=== PATIENT | female | born 1970 | race Caucasian/White ===

== ENCOUNTER 2019-04-26 13:02 | Emergency (ER) | payer OTHER ==
[2019-04-26] MEDS ORDERED: SODIUM CHLORIDE 0.9% 1,000 ML IV STA ×2 (14:04)
[2019-04-26] MEDS ORDERED: HYDROmorphone 1 MG/ML 1 ML SYRINGE IVP STA ×2 (14:05→16:27)
[2019-04-26 14:45] LABS: Appearance,Urine Clear (Clear); Bilirubin,Urine Negative (Negative); Blood,Urine Negative (Negative); Color,Urine Yellow; Glucose,Urine (UA) Negative (Negative); Ketones,Urine Negative (Negative); Leukocyte Esterase,Urine Negative (Negative); Nitrite,Urine Negative (Negative); PH, Urine 5.5 (5.0-8.0); Protein,Urine Trace (Negative); Specific Gravity,Urine 1.028 (1.001-1.035)
--- NOTE | 2019-04-26 14:50 | XR ---
EXAM TYPE: LUMBAR SPINE X RAY SERIES COMPARISON: NONE HISTORY: Pain TECHNIQUE: 3 views are submitted. FINDINGS: Alignment is anatomic. The pedicles are intact. The transverse processes are intact. There is no s pondylolysis or spondylolisthesis. Mild hypertrophic changes along the upper margin of the vertebral column with facet arthropathy L4-5 and L5-S1. Degenerative disc disease at these levels. IMPRESSION: 1. Facet arthropathy and degenerative disc disease lower lumbar spine..
[2019-04-26 14:54] LABS: INR 0.9 (<1.2); Partial Thromboplastin Time 23.9 sec (22.0-30.0); Prothrombin Time 9.8 sec (9.0-12.0)
--- NOTE | 2019-04-26 14:54 | XR ---
EXAMINATION TYPE: XR chest 2V DATE OF EXAM: 04/26/2019 COMPARISON: NONE HISTORY: Chest pain TECHNIQUE: Frontal and lateral views of the chest are obtained. FINDINGS: There is no focal air space opacity, pleural effusion, or pneumothorax seen. The cardiac silhouette size is within normal limits. The osseous structures are intact. Patient is rotated. IMPRESSION: No acute cardiopulmonary process.
[2019-04-26 14:55] LABS: ALT 17 U/L (4-34); AST 22 U/L (14-36); African American GFR (CKD) >90 (>60 ml/min/1.73 sqM); Albumin 4.7 g/dL (3.5-5.0); Alkaline Phosphatase 88 U/L (38-126); Anion Gap 6 mmol/L; Blood Urea Nitrogen 22 mg/dL (7-17); Calcium 9.3 mg/dL (8.4-10.2); Carbon Dioxide 32 mmol/L (22-30); Chloride 100 mmol/L (98-107); Glucose 105 mg/dL (74-99); Magnesium 1.8 mg/dL (1.6-2.3); Non-African American GFR(CKD) >90 (>60 ml/min/1.73 sqM); Potassium 3.8 mmol/L (3.5-5.1); Sodium 138 mmol/L (137-145); Total Bilirubin 0.5 mg/dL (0.2-1.3); Total Protein 7.3 g/dL (6.3-8.2)
[2019-04-26 14:58] LABS: Basophils % (A) 1 %; Eosinophils # (A) 0.1 k/uL (0-0.7); Eosinophils % (A) 2 %; HCT 42.9 % (34.0-46.0); HGB 14.6 gm/dL (11.4-16.0); Lymphocytes # (A) 1.7 k/uL (1.0-4.8); Lymphocytes % (A) 29 %; MCH 30.7 pg (25.0-35.0); MCHC 34.1 g/dL (31.0-37.0); MCV 89.9 fL (80.0-100.0); Mean Platelet Volume 8.4; Monocytes # (A) 0.4 k/uL (0-1.0); Monocytes % (A) 6 %; Neutrophils # (A) 3.5 k/uL (1.3-7.7); Neutrophils % (A) 60 %; Platelet Count 201 k/uL (150-450); RBC 4.77 m/uL (3.80-5.40); WBC 5.8 k/uL (3.8-10.6)
--- NOTE | 2019-04-26 15:07 | ED ---
Back Pain HPI - General Chief Complaint: Back Pain/Injury Stated Complaint: back pain, leg numbness Time Seen by Provider: 04/26/19 13:42 Source: patient, RN notes reviewed, old records reviewed Limitations: no limitations - History of Present Illness Initial Comments: 49-year-old female presents emergency department today for evaluation for lower back pain, numbness and tingling on lower legs. She reports she had a fall few weeks ago. She also states she isn't having some chest pain due to the worsening pain in her lower back. Patient states that she has no previous car diac history. Patient reports that she does have history of chronic back pain and is maintained on oral morphine. She reports that this is not managing her pain for the past this time. She sees a painter helper spray in [place]. She denies saddle anesthesias. She denies any specific abdominal pain. - Related Data Previous Rx's Medication Instructions Recorded Dexamethasone 0.75 mg PO DAILY #12 tab 04/26/19 Allergies Allergy/AdvReac Type Severity Reaction Status Date / Time No Known Allergies Allergy Verified 04/26/19 13:13 Review of Systems ROS Statement: Those systems with pertinent positive or pertinent negative responses have been documented in the HPI. ROS Other: All systems not noted in ROS Statement are negative. Past Medical History Past Medical History: Asthma, Hypertension Additional Past Medical History / Comment(s): chronic back pain, kidney stones History of Any Multi-Drug Resistant Organisms: None Reported Past Surgical History: Hysterectomy, Orthopedic Surgery, Tubal Ligation Additional Past Surgical History / Comment(s): lithotripsy Past Psychological History: No Psychological Hx Reported Smoking Status: Current some day smoker Past Alcohol Use History: None Reported Past Drug Use History: Marijuana General Exam - General Exam Comments Initial Comments: 49-year-old. Alert and oriented 3. Patient appears in no significant distress. Limitations: no limitations General appearance: alert, in no apparent distress Head exam: Present: atraumatic, normocephalic, normal inspection Eye exam: Present: normal appearance, PERRL, EOMI. Absent: scleral icterus, conjunctival injection, periorbital swelling ENT exam: Present: normal exam, mucous membranes moist Neck exam: Present: normal inspection. Absent: tenderness, meningismus, lymphadenopathy Respiratory exam: Present: normal lung sounds bilaterally. Absent: respiratory distress, wheezes, rales, rhonchi, stridor Cardiovascular Exam: Present: regular rate, normal rhythm, normal heart sounds. Absent: systolic murmur, diastolic murmur, rubs, gallop, clicks GI/Abdominal exam: Present: soft, normal bowel sounds. Absent: distended, tenderness, guarding, rebound, rigid Extremities exam: Present: normal inspection, full ROM, normal capillary refill. Absent: tenderness, pedal edema, joint swelling, calf tenderness Back exam: Present: normal inspection, tenderness (lumbar spine tenderness, right paraspinal tenderness. Normal pulses distally. Patient seen ambulating. ) Neurological exam: Present: alert, oriented X3, CN II-XII intact Psychiatric exam: Present: normal affect, normal mood Skin exam: Present: warm, dry, intact, normal color. Absent: rash Course Vital Signs 04/26/19 04/26/19 04/26/19 13:10 16:17 18:08 Temperature 97.9 F 98.4 F Pulse Rate 94 79 78 Respiratory 18 16 Rate Blood Pressure 180/85 151/97 157/98 O2 Sat by Pulse 99 98 Oximetry - Reevaluation(s) Reevaluation #1: 04/26/19 20:47 Is exhibiting drug-seeking behavior. Medical Decision Making - Medical Decision Making 49-year-old feel presenting today for evaluation for lower back pain. She also stated multiple symptoms including back pain causing chest pain. She's been having worsening back in the past few weeks. No acute fall. She has full range of motion of extremities. Normal pulses distally. She denied saddle anesthesia. Patient is maintained on oral morphine for chronic back pain. She sees a painter helper spray in addition right. Patient has not been to the ER. Extensive evaluation has been completed. Urinalysis shows no infection. Blood work was unremarkable. EKG and troponin are negative. Chest x-ray and lumbar spine x-ray were reviewed and negative for any acute process. Due to patient's persistent pain CT of the lumbar spine was ordered. This shows some minor degenerative changes without any acute process. I discussed the findings with the Patient. I discussed she is follow-up with her painter helper spray. Due to some radiculopathy symptoms Patient can be started on steroids at this time. Given IV Solu-Medrol. Patient is requesting further narcotic prescriptions discusses cannot be given to her she certainly maintained on oral morphine. Patient discharged in stable condition. - Lab Data Result diagrams: 04/26/19 14:15 04/26/19 14:15 Lab Results 04/26/19 04/26/19 04/26/19 Range/Units 14:15 14:15 14:15 WBC 5.8 (3.8-10.6) k/uL RBC 4.77 (3.80-5.40) m/uL Hgb 14.6 (11.4-16.0) gm/dL Hct 42.9 (34.0-46.0) % MCV 89.9 (80.0-100.0) fL MCH 30.7 (25.0-35.0) pg MCHC 34.1 (31.0-37.0) g/dL RDW 12.0 (11.5-15.5) % Plt Count 201 (150-450) k/uL Neutrophils % 60 % Lymphocytes % 29 % Monocytes % 6 % Eosinophils % 2 % Basophils % 1 % Neutrophils # 3.5 (1.3-7.7) k/uL Lymphocytes # 1.7 (1.0-4.8) k/uL Monocytes # 0.4 (0-1.0) k/uL Eosinophils # 0.1 (0-0.7) k/uL Basophils # 0.0 (0-0.2) k/uL PT (9.0-12.0) sec INR (<1.2) APTT (22.0-30.0) sec Sodium 138 (137-145) mmol/L Potassium 3.8 (3.5-5.1) mmol/L Chloride 100 (98-107) mmol/L Carbon Dioxide 32 H (22-30) mmol/L Anion Gap 6 mmol/L BUN 22 H (7-17) mg/dL Creatinine 0.70 (0.52-1.04) mg/dL Est GFR (CKD-EPI)AfAm >90 (>60 ml/min/1.73 sqM) Est GFR (CKD-EPI)NonAf >90 (>60 ml/min/1.73 sqM) Glucose 105 H (74-99) mg/dL Calcium 9.3 (8.4-10.2) mg/dL Magnesium 1.8 (1.6-2.3) mg/dL Total Bilirubin 0.5 (0.2-1.3) mg/dL AST 22 (14-36) U/L ALT 17 (4-34) U/L Alkaline Phosphatase 88 (38-126) U/L Troponin I (0.000-0.034) ng/mL NT-Pro-B Natriuret Pep 229 pg/mL Total Protein 7.3 (6.3-8.2) g/dL Albumin 4.7 (3.5-5.0) g/dL Lipase 62 (23-300) U/L Urine Color Urine Appearance (Clear) Urine pH (5.0-8.0) Ur Specific [place] (1.001-1.035) Urine Protein (Negative) Urine Glucose (UA) (Negative) Urine Ketones (Negative) Urine Blood (Negative) Urine Nitrite (Negative) Urine Bilirubin (Negative) Urine Urobilinogen (<2.0) mg/dL Ur Leukocyte Esterase (Negative) 04/26/19 04/26/19 04/26/19 Range/Units 14:15 14:15 14:15 WBC (3.8-10.6) k/uL RBC (3.80-5.40) m/uL Hgb (11.4-16.0) gm/dL Hct (34.0-46.0) % MCV (80.0-100.0) fL MCH (25.0-35.0) pg MCHC (31.0-37.0) g/dL RDW (11.5-15.5) % Plt Count (150-450) k/uL Neutrophils % % Lymphocytes % % Monocytes % % Eosinophils % % Basophils % % Neutrophils # (1.3-7.7) k/uL Lymphocytes # (1.0-4.8) k/uL Monocytes # (0-1.0) k/uL Eosinophils # (0-0.7) k/uL Basophils # (0-0.2) k/uL PT 9.8 (9.0-12.0) sec INR 0.9 (<1.2) APTT 23.9 (22.0-30.0) sec Sodium (137-145) mmol/L Potassium (3.5-5.1) mmol/L Chloride (98-107) mmol/L Carbon Dioxide (22-30) mmol/L Anion Gap mmol/L BUN (7-17) mg/dL Creatinine (0.52-1.04) mg/dL Est GFR (CKD-EPI)AfAm (>60 ml/min/1.73 sqM) Est GFR (CKD-EPI)NonAf (>60 ml/min/1.73 sqM) Glucose (74-99) mg/dL Calcium (8.4-10.2) mg/dL Magnesium (1.6-2.3) mg/dL Total Bilirubin (0.2-1.3) mg/dL AST (14-36) U/L ALT (4-34) U/L Alkaline Phosphatase (38-126) U/L Troponin I <0.012 (0.000-0.034) ng/mL NT-Pro-B Natriuret Pep pg/mL Total Protein (6.3-8.2) g/dL Albumin (3.5-5.0) g/dL Lipase (23-300) U/L Urine Color Yellow Urine Appearance Clear (Clear) Urine pH 5.5 (5.0-8.0) Ur Specific [place] 1.028 (1.001-1.035) Urine Protein Trace H (Negative) Urine Glucose (UA) Negative (Negative) Urine Ketones Negative (Negative) Urine Blood Negative (Negative) Urine Nitrite Negative (Negative) Urine Bilirubin Negative (Negative) Urine Urobilinogen 2.0 (<2.0) mg/dL Ur Leukocyte Esterase Negative (Negative) 04/26/19 20:17 ED performed at 1425 shows normal sinus rhythm normal ECG. Ventricular rate of 85 bpm. Pulse 124 ms. QRS duration is 90 ms. QT QTc is 410/457 ms. - Radiology Data Radiology results: report reviewed Negative CT lumbar spine. No spinal stenosis. No evidence of any lumbar disc herniation. Noted 5 mm calculus left kidney. Chest x-rays negative for any acute cardiopulmonary process. Facet arthropathy and degenerative disc disease lower lumbar spine. Disposition Clinical Impression: Back pain Disposition: HOME SELF-CARE Condition: Good Instructions (If sedation given, give patient instructions): Acute Low Back Pain (ED) Additional Instructions: Continue at home pain medication. Using the steroids as well. Follow-up with your PCP. Return and follow-up with pain management. Prescriptions: Dexamethasone 0.75 mg PO DAILY #12 tab Is patient prescribed a controlled substance at d/c from ED?: No If prescribed controlled substance>3 days was MAPS reviewed?: Prescribed <3 Days Referrals: Antonina Burnham MD [Primary Care Provider] - 1-2 days Time of Disposition: 17:29
[2019-04-26] MEDS ORDERED: ORPHENADRINE 30 MG/ML 2 ML VIAL IVP STA ×2 (16:27→18:01)
--- NOTE | 2019-04-26 17:01 | CT ---
EXAMINATION TYPE: CT lumbar spine wo con DATE OF EXAM: 04/26/2019 COMPARISON: None HISTORY: Low back pain. CT DLP: 940.7 mGycm Automated exposure control for dose reduction was used. Multiple axial sections were obtained from the level of T12-S3 vertebra without contrast. Lumbar vertebra have normal alignment. Disc spaces are fairly normal. There is no lumbar paraspinal m ass. Posterior elements are intact. There is no evidence of spinal stenosis. There is mild posterior disc bulging from L3 to S1. There is no significant impingement on the spinal canal. Facet joints are intact. There is no spondylolysis. I see no focal bone destruction. Sacroiliac joints appear normal. IMPRESSION: Negative CT scan of the lumbar spine. No spinal stenosis. No evidence of any significant lumbar disc herniation. There is noted 5 mm calculus posterior left kidney.
[2019-04-26] MEDS ORDERED: methylPREDNISolone SOD SUCCI 125 MG/2 ML VIAL IV STA (17:28)
[2019-04-26 18:10] VITALS: BP 157/98; PULSE 78; RESP 16; TEMP 98.4
== END 2019-04-26 18:08 | disposition home or self-care (01) ==
LOC: EC 13:02
DX: M54.5 Low back pain (principal); R20.0 Anesthesia of skin; R20.2 Paresthesia of skin; I10 Essential (primary) hypertension; F17.200 Nicotine dependence, unspecified, uncomplicated
CPT/HCPCS: 36415; 93005; 83880; 80053; 83690; 83735; 84484; 85025; 85610; 85730; 81003; 72100; 71046; 72131; 99284; 96374; 96375 ×2; 96376; 96361 ×4; J2360; J2930; J1170